=== PATIENT | female | born 1940 | race Hispanic/Latino ===

== ENCOUNTER 2018-03-12 06:09 | Day surgery (SDC) | payer MEDICARE, BC ==
[2013-04-08 01:09] VITALS: BMI 36.6
[2018-03-12 06:52] VITALS: O2SAT 97
[2018-03-12] MEDS ORDERED: Lidocaine 2% Inj (20ml) ONE (06:59)
[2018-03-12] MEDS ORDERED: Phenylephrine 10 mg/ml Inj ONE (06:59)
[2018-03-12] MEDS ORDERED: Nitroglycerin 50mg in D5W 0 MG/0 ML BOTTLE IV ONE (07:00)
[2018-03-12] MEDS ORDERED: Iodixanol 320 MG/ML 100 ML BOTTLE IV ONE (07:00)
[2018-03-12] MEDS ORDERED: Iohexol 350mgl/ml 50 ML ONE (07:00)
[2018-03-12] MEDS ORDERED: Iodixanol 320 MG/ML 200 ML BOTTLE IV ONE (07:00)
[2018-03-12] MEDS ORDERED: DiphenhydrAMINE 50 mg/ml Inj ONE (07:23)
[2018-03-12] MEDS ORDERED: Famotidine 20mg/50ml 20 MG/50 ML BAG IVPB ONE (07:23)
[2018-03-12] MEDS ORDERED: Midazolam 2 MG/2 ML VIAL ONE (07:28)
[2018-03-12] MEDS ORDERED: Sodium Chloride 0.9% 1,000 ML IV SCH (08:15)
[2018-03-12 08:41] VITALS: RESP 18; TEMP 97.3
--- NOTE | 2018-03-12 09:29 | CARDCATH ---
PROCEDURE DATE: 03/12/2018 PROCEDURES: 1. Selective left and right coronary angiography. 2. Left ventriculography. 3. Right femoral arteriography. 4. Angio-Seal deployment. HISTORY: This is a 77-year-old woman with known coronary artery disease, status post multivessel PCI, who has had worsening exertional dyspnea. Cardiac catheterization was recommended. INDICATION: 1. Coronary artery disease. 2. Exertional dyspnea. FINDINGS: HEMODYNAMICS: The aortic pressure was 140/80 with a left ventricular pressure of 140/20. CORONARY ANATOMY: 1. The left mainstem was calcified and had an eccentric 60-70% stenosis in its proximal segment. The LAD was also calcified with evidence of a 50% lesion within the previously placed stent in the midportion. A stent in the distal segment of the vessel had mild in-stent restenosis. The diagonal branches were of small to moderate size with mild irregularities. 2. Left circumflex artery gave rise to 2 moderate-size obtuse marginal branches. The previously placed stent in the left circumflex was patent. The second obtuse marginal had a 70% stenosis in its mid to distal segment. 3. The right coronary artery was large and dominant. This had an 80% ostial stenosis. The RCA was also fairly heavily calcified. The previously placed stent in the mid vessel was patent. The distal vessels had mild diffuse disease. LEFT VENTRICULOGRAPHY: The left ventriculogram was performed in the PAEZ projection with hand injection only. This revealed severe distal inferoapical hypokinesis with an overall ejection fraction of 35%. Mild anterolateral hypokinesis was noted as well. There was no aortic valve gradient noted on the catheter pullback. Mitral regurgitation was not assessed. RIGHT FEMORAL ARTERIOGRAPHY: A right femoral arteriogram was performed in the WINSOME projection. This revealed no evidence of significant disease. The level of puncture was appropriate and this was then closed with deployment of an Angio-Seal device. CONCLUSION: 1. Severe left main and ostial right coronary artery disease as well as moderate diffuse three-vessel coronary artery disease. 2. Moderate to severely reduced left ventricular function. RECOMMENDATIONS: Given the above findings of significant left main and ostial RCA disease as well as reduced LV function, coronary artery bypass surgery is recommended. Montrell Galloway MD
[2018-03-12 11:07] VITALS: BP 142/72; PULSE 75
== END 2018-03-12 12:08 | disposition home or self-care (01) ==
LOC: CATH 06:09
PROVIDERS: ATTEND Internal Medicine Cardiovascular Disease
DX: I25.10 Atherosclerotic heart disease of native coronary artery without angina pectoris (principal); R06.09 Other forms of dyspnea; I25.2 Old myocardial infarction; I10 Essential (primary) hypertension; E11.9 Type 2 diabetes mellitus without complications
CPT/HCPCS: 36415; 86850; 86900; 93458; 99152; C1760; C1769; C2629; J1200; J1644; J2250; J2930; J3010; J7040 ×2; Q9966